=== PATIENT | female | born 1990 | race Caucasian/White ===

== ENCOUNTER → 2016-11-04 | Outpatient (CLI) | payer BC ==
[~2016-11-04] MED LIST: FOLI1TAB7 PO; PRENTAB26 PO; PROM12.57 PO
[2016-11-04 17:18] LABS: GTGD 50 Grams
== END | disposition home or self-care (01) ==
LOC: C.LAB1850 14:20
PROVIDERS: ATTEND Obstetrics & Gynecology
DX: O30.042 Twin pregnancy, dichorionic/diamniotic, second trimester (principal)

== ENCOUNTER → 2017-01-18 | Outpatient (CLI) | payer BC ==
[~2017-01-18] MED LIST changes: +AZO PO; +BCPILLS PO; +METO1TAB55 PO; +OXYC1TAB3 PO; +TAMS0.4C38 PO
[2017-01-18 15:48] LABS: HEMATOCRIT 34.2 % (37-47)
[2017-01-18 16:05] LABS: GTGD 50 Grams
[2017-01-18 16:38] LABS: URINE APPEARANCE CLEAR (CLEAR); URINE BILIRUBIN NEG (NEG); URINE COLOR DK YELLOW; URINE EPITHELIAL CELL AUTO >30 /lpf (0-5); URINE NITRITE NEG (NEG); URINE PH 6.5 (4.5-7.5); URINE SPECIFIC GRAVITY 1.023 (1.000-1.030); UROBILINOGEN NEG (NEG)
[2017-01-18 16:52] LABS: MANUAL MICROSCOPIC REQUIRED? NO; REVIEW REQ? NO
== END | disposition home or self-care (01) ==
LOC: C.LAB1850 14:13
PROVIDERS: ATTEND Obstetrics & Gynecology
DX: O30.043 Twin pregnancy, dichorionic/diamniotic, third trimester (principal)

== ENCOUNTER 2017-02-22 18:16 | Outpatient (CLI) | payer BC | END 2017-02-22 19:00 | disposition home or self-care (01) | LOC: C.OPB 18:16 → C.LD 18:16 → C.OPB 19:00 | PROVIDERS: ATTEND Obstetrics & Gynecology | DX: O30.043 Twin pregnancy, dichorionic/diamniotic, third trimester (principal); Z3A.32 32 weeks gestation of pregnancy ==

== ENCOUNTER 2017-03-02 15:50 | Outpatient (CLI) | payer BC | END 2017-03-02 16:50 | disposition home or self-care (01) | LOC: C.LD 15:50 → C.OPB 15:50 | PROVIDERS: ATTEND Obstetrics & Gynecology | DX: O30.043 Twin pregnancy, dichorionic/diamniotic, third trimester (principal); Z3A.33 33 weeks gestation of pregnancy ==

== ENCOUNTER 2017-03-09 16:16 | Outpatient (CLI) | payer BC ==
[2017-03-09] MEDS ORDERED: PRENTAB26 PO (16:52)
[2017-03-09] MEDS ORDERED: FOLI1TAB7 PO (16:53)
== END 2017-03-09 16:50 | disposition home or self-care (01) ==
LOC: C.LD 16:16 → C.OPB 16:16
PROVIDERS: ATTEND Obstetrics & Gynecology
DX: O30.043 Twin pregnancy, dichorionic/diamniotic, third trimester (principal); Z3A.39 39 weeks gestation of pregnancy

== ENCOUNTER → 2017-03-16 | Outpatient (CLI) | payer BC ==
[~2017-03-16] MED LIST changes: -PROM12.57 PO
== END ==
LOC: C.LABSPEC 11:00
PROVIDERS: ATTEND Obstetrics & Gynecology
DX: O09.93 Supervision of high risk pregnancy, unspecified, third trimester (principal); Z3A.00 Weeks of gestation of pregnancy not specified

== ENCOUNTER 2017-03-20 02:28 | Inpatient (IN) | payer BC ==
[~2017-03-20] VITALS: Ht 160 cm; Wt 83.4 kg
[~2017-03-20 02:28] MED LIST changes: -AZO PO; -BCPILLS PO; -METO1TAB55 PO; -OXYC1TAB3 PO; -TAMS0.4C38 PO
[2017-03-20 03:43] VITALS: Ht 160 cm; Wt 83.4 kg
[2017-03-20] MEDS ORDERED: LACTATED RINGER'S 1000ML 1,000 ML IV SCH (09:08)
[2017-03-20] MEDS ORDERED: LACTATED RINGER'S 1000ML 1,000 ML IV PRN (09:08)
[2017-03-20] MEDS ORDERED: PENICILLIN G POTASSIUM IV 6 MU in DEXTROSE 5% 250ML 250 ML IV ONE (09:30)
[2017-03-20] MEDS: LACTATED RINGER'S 1000ML 1,000 ML IV SCH ×2 (09:50→16:32)
[2017-03-20 10:12] LABS: MEAN CELL VOLUME 93.8 fL (80-100); MEAN CORPUSCULAR HEMOGLOBIN 31.3 pg (25-34); MEAN CORPUSCULAR HGB CONC 33.3 g/dl (32-36); PLATELET COUNT 226 K/uL (130-400); RED BLOOD COUNT 3.84 M/uL (4.2-5.4); WHITE BLOOD COUNT 12.47 K/uL (4.8-10.8)
[2017-03-20] MEDS: PENICILLIN G POTASSIUM IV 3 MU in DEXTROSE 5% 100ML 100 ML IV PRN ×3 (13:46→21:34)
[2017-03-20] MEDS ORDERED: EpHEDrine SULFATE INJ 50 MG/ML AMP ONE (14:45)
[2017-03-20] MEDS ORDERED: BUPIVACAINE 0.25% 30 ML VIAL ONE (14:45)
[2017-03-20] MEDS ORDERED: FENTANYL CITRATE INJ 50 MCG/1 ML 2 ML VIAL ONE (14:46)
[2017-03-20] MEDS ORDERED: FENTANYL 2MCG/ML ROPIV 1.25MG/ML 100ML BAG EPI ONE (14:46)
[2017-03-20] MEDS ORDERED: LACTATED RINGER'S 1000ML 500 ML IV PRN ×2 (15:57→19:08)
[2017-03-20] MEDS ORDERED: NALOXONE HCL INJ 1 MG in SODIUM CHLORIDE 0.9% 1000ML 1,000 ML IV PRN (15:57)
[2017-03-20] MEDS ORDERED: NALBUPHINE HCL INJ 10 MG/ML AMP IV PRN (16:00)
[2017-03-20] MEDS ORDERED: ONDANSETRON INJ 2 MG/ML 2 ML VIAL IV PRN (16:00)
[2017-03-20] MEDS ORDERED: DiphenhydrAMINE HCL 50 MG/ML VIAL IV PRN (16:00)
[2017-03-20] MEDS ORDERED: FENTANYL 2MCG/ML ROPIV 1.25MG/ML 100ML BAG EPI PRN (16:00)
[2017-03-20] MEDS ORDERED: NALOXONE HCL INJ 0.4 MG/1 ML VIAL/CARP IV PRN (16:00)
[2017-03-20] MEDS ORDERED: PROMETHAZINE HCL INJ 6.25 MG in SODIUM CHLORIDE 0.9% 50ML 50 ML IV PRN (16:00)
[2017-03-20] MEDS: EpHEDrine SULFATE INJ 50 MG/ML AMP IV PRN ×2 (16:27→16:29)
[2017-03-20] MEDS ORDERED: OXYTOCIN 30 UNITS/500ML NSS IV PRN (19:15)
[2017-03-21] VITALS (8 sets, daily range): BP systolic 100–115; BP diastolic 65–76; PULSE 86–102; TEMP 36.5–36.8; O2SAT 96–97
[2017-03-21] MEDS ORDERED: OXYTOCIN 30 UNITS/500ML NSS IV PRN (01:45)
[2017-03-21] MEDS ORDERED: LANOLIN OINT EXT PRN ×2 (01:45)
[2017-03-21] MEDS ORDERED: HYDROCORTISONE ACETATE 25 MG SUPP PR PRN (01:45)
[2017-03-21] MEDS ORDERED: OXYCODONE/ACETAMINOPHEN 5-325 TAB PO PRN (01:45)
[2017-03-21] MEDS ORDERED: SUPERCREAM 0.870 % 15GM JAR EXT PRN (01:45)
[2017-03-21] MEDS ORDERED: BENZOCAINE 20% AER SPR 82.5 GM CAN EXT PRN (01:45)
[2017-03-21] MEDS: IBUPROFEN 600 MG TAB PO PRN ×4 (02:51→19:32)
--- NOTE | 2017-03-21 03:15 | DELIVERY SUMMARY ---
DATE OF OPERATION: 03/21/2017 PRE-DELIVERY DIAGNOSES: 1. 36-week Anila twin gestation. 2. Advanced cervical dilation with cervical change and irregular contractions. POST-DELIVERY Diagnoses: Same. PROCEDURE: Spontaneous vaginal delivery of twins. FINDINGS: Baby A: viable female with Apgars 8 and 9 and weight was 5 pounds 12 ounces. Baby B viable male with Apgars 4 at 1 minute, 7 at 5 minutes and 8 at 10 minutes and weight for baby B was 5 pounds 14 ounces. First-degree perineal laceration. DESCRIPTION OF DELIVERY: The patient progressed to complete under epidural anesthesia. When she was complete and feeling the urge to push, she was taken to the operating room, where delivery was undertaken under double setup, in the event we needed to convert to section emergently. Patient began to push and baby A delivered from a cephalic presentation, the head delivered, nuchal cord x1 was noted and easily reduced. The anterior shoulder, followed by the posterior shoulder delivered followed by the body. The cord was doubly clamped and cut. Baby was handed off to the waiting pediatrics team. Next, under ultrasound guidance, baby B descended into the pelvis, feet first. An attempt was made to externally rotate baby to a cephalic presentation. However, even when the head descended into the pelvis, the feet were still present in addition to the head. Therefore, a decision was made to attempt to deliver the baby by breech extraction. The membranes of baby B were ruptured using an amnihook and foot was brought into the pelvis. The second leg was brought into the pelvis and the legs were delivered followed by the breech. Baby was wrapped in a wet blue towel and bilateral arms were swept midline and delivered and the head was flexed and delivered. The cord was doubly clamped and cut and baby was handed off to the waiting cane flume watchman. The cord segments were obtained for cord gases and these were sent to the lab. Placentas were sent for evaluation by pathology with one plastic clip on A and two plastic clips on B. Bilateral placentas were delivered with gentle traction and sent to pathology. The uterus and vagina were swept of all clots and debris. The uterus began to clamp down. The bladder was drained for approximately 200 mL of clear urine. This helped achieve better hemostasis. Pitocin was given. The cervix, uterus and vagina were inspected and a first-degree perineal laceration was noted. This was repaired with 3-0 Vicryl in standard fashion. Excellent hemostasis was observed. Mother and babies recovered in stable and good condition. I attest to the content of the Intraoperative Record and any orders documented therein. Any exceptions are noted below. MTDD
[2017-03-21] MEDS: DOCUSATE SODIUM 100 MG CAP PO SCH ×2 (08:49→19:32)
--- NOTE | 2017-03-21 09:20 | Anesthesia Procedure Note ---
Anesthesia Epidural Removal Nt Date & Time Mar 21, 2017 at 09:20 Vital Signs Pain Intensity: 4.0 Vital Signs Past 12 Hours Date Time Temp Pulse Resp B/P (MAP) Pulse Ox O2 Delivery O2 Flow Rate FiO2 03/21/17 07:43 36.6 86 18 105/69 (81) 96 Room Air 03/21/17 05:00 Room Air 03/21/17 05:00 36.6 101 18 109/69 (82) Room Air Notes Mental Status: alert / awake / arousable, participated in evaluation Nausea / Vomiting: adequately controlled Pain: adequately controlled Airway Patency, RR, SpO2: stable & adequate BP & HR: stable & adequate Hydration State: stable & adequate Neuraxial Anesthesia: was administered Anesthetic Complications: no major complications apparent, pt satisfied with anesthetic care Epidural: removed without complications, with tip intact
--- NOTE | 2017-03-22 07:42 | OB/GYN Progress Note ---
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 Subjective conversation w/ patient, physical exam Ambulation: ambulating normally Voiding: no voiding problems Passing Gas: Yes Diet Tolerance: Regular Diet Lochia: Small Feeding Type: Breast Feeding Pain: minimal, controlled with ibuprofen Review of Systems Constitutional: No fever, No chills Respiratory: No cough, No shortness of breath Cardiac: No chest pain, No edema, No palpitations Abdomen: No pain, No nausea, No vomiting Objective Vital Signs Date Time Temp Pulse Resp B/P (MAP) Pulse Ox O2 Delivery O2 Flow Rate FiO2 03/21/17 23:47 Room Air 03/21/17 23:45 36.8 91 18 115/76 (89) Room Air 03/21/17 20:00 36.8 102 18 106/68 (81) 96 Room Air 03/21/17 16:30 97 Room Air 03/21/17 16:30 36.7 96 18 107/66 (80) 97 Room Air 03/21/17 13:12 36.6 96 18 101/65 (77) 97 Room Air 03/21/17 11:10 36.5 100 20 100/66 (77) 97 Room Air 03/21/17 09:10 97 Room Air 03/21/17 07:43 36.6 86 18 105/69 (81) 96 Room Air Physical Exam General Appearance: WELL-APPEARING, NO APPARENT DISTRESS Respiratory/Chest: lungs clear, no accessory muscle use Cardiovascular: regular rate, rhythm, no murmur Abdomen: normal bowel sounds, non tender, soft Fundus: Firm, Non-Tender, Relation to Umbilicus (2 cm below) Extremities: non-tender, no calf tenderness Laboratory Results Last 24 Hours Test 03/22/17 07:17 Assessment and Plan Post- Day Number: 1 Continue Routine Care: Day 1 Vitals reviewed and stable Hgb pending today. 12.2 (2 days ago) A+, GBS+, Rubella immune Encourage ambulation, encourage and monitor lochia Patient doing well clinically CONTINUE ROUTINE POST CARE Resident Physician Supervision Note: I interviewed and examined the patient. Discussed with Dr. Guerin and agree with findings and plan as documented in the note. Any exceptions or clarifications are listed here: [None] Documented By: Og Stephens
[2017-03-22 07:48] LABS: HEMATOCRIT 28.4 % (37-47)
[2017-03-22] MEDS: DOCUSATE SODIUM 100 MG CAP PO SCH ×2 (08:07→20:08)
[2017-03-22] MEDS: IBUPROFEN 600 MG TAB PO PRN ×2 (08:08→22:14)
[2017-03-22 08:52] VITALS: BP 98/57; PULSE 62; TEMP 36.7; O2SAT 98
[2017-03-22 09:15] VITALS: BP 113/66; PULSE 93; TEMP 36.6; O2SAT 98
[2017-03-22 15:40] VITALS: BP 112/73; PULSE 86; TEMP 36.7
[2017-03-22] MEDS ORDERED: BISACODYL 5 MG TABEC PO SCH (20:00)
[2017-03-23] VITALS: BP 119/72; PULSE 93; TEMP 36.8; O2SAT 98
--- NOTE | 2017-03-23 07:30 | Progress Note ---
Subjective Mar 23, 2017. Subjective conversation w/ patient, physical exam, lab review Ambulation: ambulating normally Voiding: no voiding problems Passing Gas: Yes Diet Tolerance: Regular Diet Lochia: Small Feeding Type: Breast Feeding Pain: controlled Objective Vital Signs Date Time Temp Pulse Resp B/P (MAP) Pulse Ox O2 Delivery O2 Flow Rate FiO2 03/23/17 00:00 36.8 93 18 119/72 (88) 98 Room Air 03/23/17 00:00 Room Air 03/22/17 15:40 36.7 86 18 112/73 (86) Room Air 03/22/17 15:40 Room Air 03/22/17 09:15 36.6 93 18 113/66 (82) 98 Room Air Physical Exam General Appearance: WELL-APPEARING, WD/WN, NO APPARENT DISTRESS Abdomen: normal bowel sounds, non tender, soft Fundus: Firm, Non-Tender, Relation to Umbilicus Extremities: normal range of motion, non-tender, normal inspection, + pedal edema (trace) Assessment and Plan Post- Day#: 2 Continue Routine Care: Doing well. Plan d/c or rooming in if issues with the babies.
--- NOTE | 2017-03-23 07:32 | Discharge Instructions ---
Discharge Instructions Date of Service Mar 23, 2017. Admission Reason for Admission: Check Labor Discharge Discharge Diagnosis / Problem: s/p vaginal delivery of twins Discharge Goals Goal(s): Routine recovery after delivery Activity Recommendations Activity Limitations: per Instructions/Follow-up section . Instructions / Follow-Up Instructions / Follow-Up ACTIVITY RECOMMENDATIONS: * Gradual return to full activity over the next 2-3 weeks. * No lifting - nothing heavier than baby over the next 2-3 weeks. * Do not engage in vigorous exercise, sexual activity or sports until cleared by your physician. * Do not drive or operate any motorized equipment until cleared by your physician. * You may shower/bathe daily. MEDICATIONS: For discomfort or pain, you may use Acetaminophen (Tylenol), Ibuprofen (Advil), or Naproxen (Aleve) following the package directions. For constipation you may use Colace following the package directions. BREAST CARE: If you are not breast feeding: * Wear a supportive bra 24 hours a day for one to two weeks. * Avoid stimulating your breasts and nipples as much as possible during the first few weeks after delivery. * When taking a shower, have the warm water hit your back, not breasts. * When your breasts feel full, apply ice packs. Usually three to four times a day helps ease the discomfort. * Take a mild pain medication (Tylenol / Motrin) when you are uncomfortable. If breast feeding: * Use breast milk to lubricate nipples. Lansinoh cream may be used for sore nipples. You do not need to remove cream prior to breast feeding. If using a different brand of cream, check the label for directions regarding removal of cream prior to nursing. * Wear a supportive bra. * If having problems with breasts or breast feeding, call a outside solar sales consultant or your health care provider. EPISIOTOMY CARE: After delivery, if you have an episiotomy (stitches), the following steps will ease discomfort and aid healing. * For the first 24 hours after delivery, place ice packs next to your episiotomy to help reduce swelling. * After the first 24 hour-period, sitz baths, either portable or in the tub, are suggested. A shower with a shower arm sprayed over the episiotomy may be comforting. * Morena care should be done after each voiding and bowel movement. Squirt warm water from a plastic bottle over the perineum (region of the body between the anus and urinary opening) and pat dry. * Use Dermoplast to ease discomfort. Shake container. [place] directly over the episiotomy. Place a Tucks on a clean sanitary pad next to your episiotomy. SPECIAL CARE INSTRUCTIONS: When you are discharged from the hospital, it is important for you to follow the instructions listed below: * During the first week at home, you should be able to care for yourself and your baby. In addition, the usual light household activities are encouraged. * Limit your activities to the way you feel. Do not try to clean the house or move furniture. Be sensible. * If you actively engage in sports and have done so up until the time of your delivery, you may resume these activities as soon as you feel able. This may take up to one month or even longer. Use good judgment. * Continue to take your vitamins for at least six weeks after the of your baby. * Your diet need not be limited unless you were on a special diet before your delivery. Breast-feeding mothers need around 2500 calories per day and at least 64-80 ounces of fluid per day (8 to 10 glasses). * You should eat foods from the four major food groups. Crash diets or fad diets are to be avoided. Eating lean meats, fresh fruits and vegetables, low-fat dairy products, high fiber foods and a regular exercise program, will help you get back to your pre- weight without putting your health at risk. * Constipation is sometimes a problem after delivery. Take a mild laxative as needed. If breast feeding, Milk of Magnesia is acceptable to use. You may use a suppository or Fleets enema if no episiotomy. * A daily shower or tub bath is suggested. Be sure to thoroughly and gently dry the perineum. * A bloody vaginal discharge will usually continue until around four weeks post . A small amount of bleeding may continue for as long as six weeks. Vaginal discharge changes from the bright red bleeding after delivery to pink then brownish and finally yellowish-pink before becoming white and disappearing. * Bleeding may increase with activity. Your first period may come in 4-8 weeks. If you are breast feeding, your period may be delayed even longer. * Linda (sex) can begin whenever both you and your partner feel comfortable and do not have any form of genital infection. It is recommended that you wait at least six weeks for internal and external healing to occur. If you have questions, please talk to your health care practitioner. A condom should be used to prevent infection and . * Foreplay, gentle intercourse and lubrication is very important the first several times to prevent pain. A water-based lubricant such as K-Y jelly or Astroglide may be used. * If you have RH negative blood and your baby is RH positive, you will receive RHOGAM by injection prior to discharge. The nurse will give you a card to keep with you that has the date and place that you received RHOGAM after delivery. * During your care, you had a Rubella screen done to check for the presence of rubella antibodies in your blood. If your test was negative, you will receive a Rubella vaccine prior to discharge. This vaccine may cause a fever, soreness at the injection site and flu-like symptoms. If these symptoms persist, notify your health care practitioner. is not advised for one month after a Rubella vaccine. * Verbalizes understanding of car seat law as reviewed with patient nursing. * Car Seat hand-out given and reviewed with patient by nursing. * Shaken baby information reviewed with patient by nursing. Call you doctor if: * Heavy bleeding (saturating several pads an hour) or passing clots the size of your fist. * A fever >101 degrees F (38.3 degrees C) on two occasions four hours apart and /or chills. * Unusual pain in the pelvic or vaginal areas. * "Baby Blues" lasting longer than two weeks. If you have any questions or concerns, call your health care practitioner at . FOLLOW UP VISIT: * Please call the office at to schedule a 6 week examination. It is important you keep this appointment. It is important for you to make arrangements for either yearly or twice yearly check-ups thereafter. Current Hospital Diet Patient's current hospital diet: Regular OB Diet Discharge Diet Recommended Diet: Regular Diet Pending Studies Studies pending at discharge: no Medical Emergencies . Who to Call and When: Medical Emergencies: If at any time you feel your situation is an emergency, please call 911 immediately. . Non-Emergent Contact Non-Emergency issues call your: Manager Gift . . "Provider Documentation" section prepared by Kirsten Franklin. . VTE Core Measure Inpt VTE Proph given/why not?: Treatment not indicated
[2017-03-23 07:45] VITALS: BP 104/66; PULSE 84; TEMP 36.6; O2SAT 98
[2017-03-23] MEDS: DOCUSATE SODIUM 100 MG CAP PO SCH (07:57)
[2017-03-23] MEDS: IBUPROFEN 600 MG TAB PO PRN (07:58)
[2017-03-23 15:50] VITALS: BP_DIAS 66; PULSE 84; TEMP 36.6
== END 2017-03-23 16:05 | disposition home or self-care (01) | DRG 775 ==
LOC: C.OPB 02:28 → C.LD 02:28 → C.OPB 09:10 → C.LD 09:10 → C.OBG 03-21 05:17
PROVIDERS: ADMIT Obstetrics & Gynecology; ATTEND Obstetrics & Gynecology
PROC: 0HQ9XZZ Repair Perineum Skin, External Approach (ICD-10-PCS; principal; 2017-03-21)
PROC: 10E0XZZ Delivery of Products of Conception, External Approach (ICD-10-PCS; principal; 2017-03-21)
DX: O60.14X1 Preterm labor third trimester with preterm delivery third trimester, fetus 1 (principal); O60.14X2 Preterm labor third trimester with preterm delivery third trimester, fetus 2; O30.043 Twin pregnancy, dichorionic/diamniotic, third trimester; O32.8XX2 Maternal care for other malpresentation of fetus, fetus 2; O69.81X1 Labor and delivery complicated by cord around neck, without compression, fetus 1; O70.0 First degree perineal laceration during delivery; O99.824 Streptococcus B carrier state complicating childbirth; O28.8 Other abnormal findings on antenatal screening of mother; Z37.2 Twins, both liveborn; Z3A.36 36 weeks gestation of pregnancy

== ENCOUNTER → 2017-07-14 | Outpatient (CLI) | payer BC ==
[~2017-07-14] MED LIST changes: +AZO PO; +BCPILLS PO; +METO1TAB55 PO; +OXYC1TAB3 PO; +TAMS0.4C38 PO
[2017-07-14 17:49] LABS: URINE APPEARANCE CLEAR (CLEAR); URINE BILIRUBIN NEG (NEG); URINE COLOR YELLOW; URINE NITRITE NEG (NEG); URINE SPECIFIC GRAVITY 1.026 (1.000-1.030); UROBILINOGEN NEG (NEG)
[2017-07-14 17:51] LABS: MANUAL MICROSCOPIC REQUIRED? NO; REVIEW REQ? NO
== END | disposition home or self-care (01) ==
LOC: C.LAB1850 17:12
PROVIDERS: ATTEND Obstetrics & Gynecology
DX: R39.9 Unspecified symptoms and signs involving the genitourinary system (principal)

== ENCOUNTER 2017-07-17 13:41 | Emergency (ER) | payer BC ==
[~2017-07-17] VITALS: Ht 160 cm; Wt 63.8 kg
[~2017-07-17 13:41] MED LIST changes: -AZO PO; -BCPILLS PO; -METO1TAB55 PO; -OXYC1TAB3 PO; -TAMS0.4C38 PO
[2017-07-17 13:44] VITALS: TEMP 36.3; Ht 160 cm; Wt 63.8 kg
[2017-07-17] MEDS ORDERED: KETOROLAC TROMETHAMINE 30 MG/ML VIAL IV STA (14:59)
[2017-07-17] MEDS ORDERED: SODIUM CHLORIDE 0.9% 1000ML 1,000 ML IV STA (14:59)
[2017-07-17] MEDS ORDERED: ONDANSETRON INJ 2 MG/ML 2 ML VIAL IV STA (14:59)
--- NOTE | 2017-07-17 15:11 | EMERGENCY ROOM VISIT NOTE ---
History First contact with patient: 14:48 Chief Complaint: ABDOMINAL PAIN Stated Complaint: ABDOMEN AND BACK PAIN,VOMITING,BLOOD IN URINE Nursing Triage Summary: pt reports monday turned in urine sample sent here today for possible kidney stones . awoke with abd, back pain nauseated and vomiting History of Present Illness The patient is a 26 year old female who presents to the Emergency Room with complaints of left flank pain with nausea and vomiting that started today. Patient states she has been having symptoms of urinary frequency for the past week, she sent in a urinalysis to the lab 3 days ago and was told that there was blood in her urine, but no infection. She states that yesterday she noticed a little bit of left-sided back pain that has become much worse today. The pain radiates around to the front of her abdomen, she describes it as sharp and severe, similar to labor pains, 04/17. She states that she did take an over- the-counter Azo tablet for her urinary symptoms this morning, however she believes she vomited this up. She has not tried any other [id number] medications for pain. She does have a history of urinary tract infections, but denies any history of kidney stones. She is 3 months after giving to twins, she is currently breast-feeding, and states she has not gotten her period back yet. She denies any other symptoms of fever/chills, dizziness or passing out, chest pain, shortness of breath, diarrhea or constipation. Review of Systems A complete 10 point review of systems was reviewed with the patient with pertinent positives and negatives as per history of present illness. All else were negative. Past Medical/Surgical History Medical Problems: (1) Dichorionic diamniotic twin in third trimester (2) with 36 completed weeks gestation (3) Premature onset of labor (4) Twin gestation in third trimester Social History Smoking Status: Never Smoker Alcohol Use: none Drug Use: none Marital Status: Housing Status: lives with family Occupation Status: employed Current/Historical Medications Scheduled Control Pills ( Control Pills), 1 TAB PO DAILY Tamsulosin Hcl (Flomax), 0.4 MG PO DAILY [Azo], 2 TAB PO PRN Scheduled PRN Metoclopramide Hcl (Reglan), 1 TAB PO TID PRN for Documentation Oxycodone Ir (Roxicodone Ir), 1-2 TAB PO Q6H PRN for Severe Pain Physical Exam Vital Signs Date Time Temp Pulse Resp B/P (MAP) Pulse Ox O2 Delivery O2 Flow Rate FiO2 07/17/17 16:54 74 18 93/46 96 Room Air 07/17/17 15:12 62 18 99/65 98 Room Air 07/17/17 13:44 36.3 66 18 112/79 97 Room Air Physical Exam CONSTITUTIONAL: No acute distress. Well appearing and well nourished. Alert and oriented X 4 with normal affect. HEENT: Normocephalic, atraumatic. Pupils equal, round and reactive to light, EOMI. TMs normal. Pharynx normal. NECK: Supple, full active range of motion without discomfort. RESPIRATORY: Clear to auscultation bilaterally with no wheezing, crackles, rhonchi or stridor. Equal expansion bilaterally. CARDIOVASCULAR: Regular rate and rhythm with no murmurs, rubs or gallops. Normal peripheral perfusion. No edema. GASTROINTESTINAL: Moderate tenderness on the left flank/left lower quadrant. No rebound, no guarding. Positive CVA tenderness on the left. Abdomen is otherwise soft and nondistended. Bowel sounds present in all quadrants. MUSCULOSKELETAL: Full range of motion of all joints without discomfort. INTEGUMENTARY: No rash or other significant dermatologic conditions noted. NEUROLOGIC: Cranial nerves II-XII grossly intact. No focal neurologic deficits noted. Medical Decision & Procedures Laboratory Results 07/17/17 14:55 Red Blood Count 4.75, Mean Corpuscular Volume 89.5, Mean Corpuscular Hemoglobin 30.5, Mean Corpuscular Hemoglobin Concent 34.1, Mean Platelet Volume 10.1, Neutrophils (%) (Auto) 77.2, Lymphocytes (%) (Auto) 17.1, Monocytes (%) (Auto) 5.0, Eosinophils (%) (Auto) 0.3, Basophils (%) (Auto) 0.2, Neutrophils # (Auto) 7.65, Lymphocytes # (Auto) 1.70, Monocytes # (Auto) 0.50, Eosinophils # (Auto) 0.03, Basophils # (Auto) 0.02 07/17/17 14:55 Test 07/17/17 14:55 White Blood Count 9.92 K/uL (4.8-10.8) Red Blood Count 4.75 M/uL (4.2-5.4) Hemoglobin 14.5 g/dL (12.0-16.0) Hematocrit 42.5 % (37-47) Mean Corpuscular Volume 89.5 fL (80-100) Mean Corpuscular Hemoglobin 30.5 pg (25-34) Mean Corpuscular Hemoglobin Concent 34.1 g/dl (32-36) Platelet Count 266 K/uL (130-400) Mean Platelet Volume 10.1 fL (7.4-10.4) Neutrophils (%) (Auto) 77.2 % Lymphocytes (%) (Auto) 17.1 % Monocytes (%) (Auto) 5.0 % Eosinophils (%) (Auto) 0.3 % Basophils (%) (Auto) 0.2 % Neutrophils # (Auto) 7.65 K/uL (1.4-6.5) Lymphocytes # (Auto) 1.70 K/uL (1.2-3.4) Monocytes # (Auto) 0.50 K/uL (0.11-0.59) Eosinophils # (Auto) 0.03 K/uL (0-0.5) Basophils # (Auto) 0.02 K/uL (0-0.2) RDW Standard Deviation 43.6 fL (36.4-46.3) RDW Coefficient of Variation 13.3 % (11.5-14.5) Immature Granulocyte % (Auto) 0.2 % Immature Granulocyte # (Auto) 0.02 K/uL (0.00-0.02) Urine Color ORANGE Urine Appearance SLIGHTLY CLOUDY (CLEAR) Urine pH (4.5-7.5) Urine Specific [place] 1.029 (1.000-1.030) Urine Protein NEG (NEG) Urine Glucose (UA) (NEG) Urine Ketones (NEG) Urine Occult Blood (NEG) Urine Nitrite (NEG) Urine Bilirubin (NEG) Urine Urobilinogen (NEG) Urine Leukocyte Esterase (NEG) Urine WBC (Auto) 10-30 /hpf (0-5) Urine RBC (Auto) 10-30 /hpf (0-4) Urine Hyaline Casts (Auto) 1-5 /lpf (0-5) Urine Epithelial Cells (Auto) >30 /lpf (0-5) Urine Bacteria (Auto) 1+ (NEG) Urine Mucus PRESENT (NONE PRSENT) Urine Test NEG (NEG) Anion Gap 7.0 mmol/L (3-11) Est Creatinine Clear Calc Drug Dose 94.3 ml/min Estimated GFR () 115.3 Estimated GFR (Non- 99.5 BUN/Creatinine Ratio 25.5 (10-20) Calcium Level 9.3 mg/dl (8.5-10.1) Medications Administered Medications (Trade) Dose Ordered Sig/Heidi Route Start Time Stop Time Status Last Admin Dose Admin Sodium Chloride 1,000 ml @ 999 mls/hr Q1H1M STAT IV 07/17/17 14:59 07/17/17 15:59 DC 07/17/17 14:59 999 MLS/HR Ondansetron HCl (Zofran Inj) 4 mg NOW STAT IV 07/17/17 14:59 07/17/17 15:02 DC 07/17/17 15:10 4 MG Ketorolac Tromethamine (Toradol Inj) 15 mg NOW STAT IV 07/17/17 14:59 07/17/17 15:02 DC 07/17/17 15:10 15 MG Tamsulosin HCl (Flomax Cap) 0.4 mg NOW ONCE PO 07/17/17 16:30 07/17/17 16:31 DC 07/17/17 16:53 0.4 MG Medical Decision CC: Patient presenting with complaint of left flank pain, nausea/vomiting, hematuria Interpretation of Labs: No leukocytosis, no anemia, no significant electrolyte abnormality, normal renal function. UA was unable to be fully interpreted due to large amount of blood, culture sent for confirmation. Urine negative. Differential Diagnosis: Includes, but not limited to kidney stone, renal colic, UTI, pyelonephritis, ovarian torsion, ectopic , gastroenteritis, diverticulitis, among others. Medication Reconciliation: I attest that I have personally reviewed the patient' s current medication list. Vital signs review: I reviewed the patient's vital signs and interpret them as follows: T: Afebrile; BP: Normotensive; HR: Within normal limits; RR: Within normal limits; Pulse Ox: Within normal limits on room air. Summary: Patient was evaluated at bedside, history of physical exam performed. Patient is alert and in no acute distress, resting calmly in the stretcher. She does have left-sided CVA tenderness with left flank tenderness on exam. She reports that her pain is currently improved, rates as 3/10. She states that she had gone into the bathroom to void, after which her pain seemed to improve. Orders were placed at bedside for labs, UA and urine , IV fluids for hydration, IV Zofran for nausea, IV Toradol for pain, CT abdomen/pelvis without contrast to evaluate for ureteral stone. Patient discussed with Dr. Gan, who agrees with my assessment and plan. Labs reviewed as above, no significant abnormalities. Gross hematuria. CT imaging confirms a left distal 6 mm ureteral stone, with mild to moderate hydronephrosis. Patient was updated on all results and plan for management/discharge. She was provided with prescriptions for symptomatic management, urine strainer, and referral information for the urologist. Patient reassessed multiple times throughout ED stay, she reports that her pain has been much improved after Toradol, her nausea is also improved after Zofran and she is tolerating some PO. Patient was comfortable with plan for discharge home. I did discuss all of her prescriptions with her in relation to her breast feeding, and gave her directions regarding pump and dump. Patient was also given return precautions should her symptoms worsen, she verbalized understanding. Patient was discharged home in stable condition and ambulatory. Impression Primary Impression: Calculus of distal left ureter Departure Information Dispostion Home / Self-Care Condition GOOD Prescriptions Metoclopramide Hcl (REGLAN) 10 Mg Tab 1 TAB PO TID Y for Documentation, #10 TAB As needed for nausea/vomiting Prov: Ashanti Chowdary CRNP 07/17/17 Tamsulosin Hcl (FLOMAX) 0.4 Mg Cap 0.4 MG PO DAILY for 7 Days, #7 CAP Prov: Ashanti Chowdary CRNP 07/17/17 Oxycodone Ir (Roxicodone Ir) 5 Mg Tab 1-2 TAB PO Q6H Y for Severe Pain, #20 TAB Prov: Ashanti Chowdary CRNP 07/17/17 Referrals Nick Levi M.D. (PCP) Solomon Lester M.D. Patient Instructions ED Stone Renal W Colic, ED Strainer Urine, [facility] Additional Instructions You have been treated in the Emergency Department today for a Kidney Stone ( Nephrolithiasis). For mild to moderate pain, you should take ibuprofen 600 mg every 6-8 hours as needed. You may also take Tylenol (acetaminophen) 1000 mg every 8 hours as needed. These are both safe during breast-feeding. You have been prescribed oxycodone to be used as needed for severe pain. This is a narcotic medication. You cannot drive or consume alcohol while on this medicine. This medicine should only be used for pain that cannot be controlled with [id number] pain medicines. You should pump and dump after taking this medicine to avoid passing it to your infants. You have been prescribed Reglan to be used for any nausea or vomiting. Take as prescribed. This is safe during breast-feeding. You have been prescribed Flomax 0.4 mg to be taken ONCE daily. This medicine has been prescribed as it can help relax the smooth muscles of the urinary tract increasing transit time of the kidney stone. You should pump and dump after taking this medicine. Drink plenty of fluids to stay hydrated. You have been provided a strainer and specimen collection cup. You should strain your urine to collect any passed stones. Your stones can be placed into the specimen cup and taken to your Urologist for further evaluation. You have been provided the contact information for the on-call Urologist. You should contact the Urologist's office tomorrow to establish a follow-up appointment in the next 1-2 weeks. Return to the Emergency Department if your symptoms persist despite the treatment plan outlined above or if you develop the following symptoms: Severe pain that does not respond to medications, uncontrolled nausea/vomiting, fever/ chills, if you are unable to urinate, or for large amounts of blood in your urine.
[2017-07-17 15:30] LABS: BASO % 0.2 %; BASO ABS # 0.02 K/uL (0-0.2); COMPLETE YES; EOS % 0.3 %; HEMATOCRIT 42.5 % (37-47); IG% 0.2 %; LYMPH % 17.1 %; MANUAL MICROSCOPIC REQUIRED? NO; MEAN CELL VOLUME 89.5 fL (80-100); MEAN CORPUSCULAR HEMOGLOBIN 30.5 pg (25-34); MEAN CORPUSCULAR HGB CONC 34.1 g/dl (32-36); MEAN PLATELET VOLUME 10.1 fL (7.4-10.4); NEUT % 77.2 %; PLATELET COUNT 266 K/uL (130-400); RED BLOOD COUNT 4.75 M/uL (4.2-5.4); REVIEW REQ? YES; SULFASALICYLIC ACID NEG (NEG); URINE APPEARANCE SLIGHTLY CLOUDY (CLEAR); URINE COLOR ORANGE; URINE SPECIFIC GRAVITY 1.029 (1.000-1.030); WHITE BLOOD COUNT 9.92 K/uL (4.8-10.8)
[2017-07-17 15:35] LABS: URINE MUCUS PRESENT (NONE PRSENT)
[2017-07-17 15:36] LABS: URINE EPITHELIAL CELL AUTO >30 /lpf (0-5)
[2017-07-17 15:37] LABS: BUN/CREATININE RATIO 25.5 (10-20); CALCIUM 9.3 mg/dl (8.5-10.1); CREATININE 0.82 mg/dl (0.60-1.20); POTASSIUM 3.9 mmol/L (3.5-5.1)
[2017-07-17] MEDS ORDERED: BCPILLS PO (15:50)
[2017-07-17] MEDS ORDERED: AZO PO (15:50)
--- NOTE | 2017-07-17 15:51 | DIAGNOSTIC IMAGING REPORT ---
ABD/PELVIS WITHOUT FOR STONE CLINICAL HISTORY: 26 years-old Female presenting with Flank pain, eval for stone. TECHNIQUE: Multidetector CT of the abdomen and pelvis was performed without the use of intravenous contrast. IV contrast: None. A dose lowering technique was used consistent with the principles of ALARA (as low as reasonably achievable). COMPARISON: None. CT DOSE (mGy.cm): The estimated cumulative dose is 536.12 mGy.cm. FINDINGS: Ad Setter topogram: Unremarkable. Lung bases: Lung bases clear. Normal heart size. No pericardial or pleural effusion. Liver: Normal morphology. Normal density. Biliary: No gross biliary ductal dilatation allowing for noncontrast technique. Normal gallbladder. Pancreas: Normal noncontrast appearance. Spleen: Normal noncontrast appearance. Adrenal glands: Normal noncontrast appearance. Kidneys and ureters: 2 mm nonobstructing calculus at the lower pole of the left kidney. Mild left hydroureteronephrosis. Obstructing 6 mm calculus impacted in the distal left ureter immediately proximal to the vesicoureteral junction. Bladder: Normal. No bladder calculi. Pelvic organs: Normal noncontrast appearance. Bowel: Appendix contains an appendicolith at its tip. Appendix otherwise normal. No bowel obstruction. Peritoneal cavity: No free fluid or intraperitoneal gas. Lymph nodes: No gross lymphadenopathy allowing for noncontrast technique. Vasculature: Normal noncontrast appearance. Abdominal wall: Small fat-containing of [place] hernia. Musculoskeletal: Normal. IMPRESSION: 1. Obstructing 6 mm calculus in the distal left ureter with resultant mild left hydroureteronephrosis. Additional nonobstructing punctate calculus at the lower pole the left kidney. Electronically signed by: Luis Steele M.D. 07/17/2017 3:49 PM Dictated Date/Time: 07/17/2017 3:45 PM
[2017-07-17] MEDS ORDERED: TAMSULOSIN HCL 0.4 MG CAP PO ONE (16:30)
[2017-07-17] MEDS ORDERED: OXYC1TAB3 PO (16:34)
[2017-07-17] MEDS ORDERED: TAMS0.4C38 PO (16:34)
[2017-07-17] MEDS ORDERED: METO1TAB55 PO (16:34)
[2017-07-17 16:54] VITALS: BP 93/46; PULSE 74; O2SAT 96
== END 2017-07-17 17:06 | disposition home or self-care (01) ==
LOC: C.EDB 13:43 → C.EDC 17:06
DX: N20.1 Calculus of ureter (principal); R10.9 Unspecified abdominal pain; R31.9 Hematuria, unspecified; R11.10 Vomiting, unspecified

== ENCOUNTER → 2017-09-07 | Outpatient (CLI) | payer BC ==
[~2017-09-07] MED LIST changes: +AZO PO; +BCPILLS PO; -FOLI1TAB7 PO; +METO1TAB55 PO; +OXYC1TAB3 PO; -PRENTAB26 PO
[2017-09-07 17:27] LABS: MANUAL MICROSCOPIC REQUIRED? NO; REVIEW REQ? NO; URINE APPEARANCE CLEAR (CLEAR); URINE BILIRUBIN NEG (NEG); URINE COLOR YELLOW; URINE EPITHELIAL CELL AUTO >30 /lpf (0-5); URINE NITRITE NEG (NEG); UROBILINOGEN NEG (NEG)
== END | disposition home or self-care (01) ==
LOC: C.LAB1850 16:31
PROVIDERS: ATTEND Obstetrics & Gynecology
DX: R39.9 Unspecified symptoms and signs involving the genitourinary system (principal)

== ENCOUNTER → 2017-09-26 | Outpatient (CLI) | payer BC ==
[2017-09-26 14:11] LABS: PREG INTERNAL NEGATIVE QC NEG CLEAR BACKGROUND; PREG INTERNAL POSITIVE QC POS CONTROL LINE
[2017-09-29 03:07] LABS: CHLAMYDIA TRACH RNA*** NOT DETECTED (NOT DETECTED); GC (NEIS GONORRHOEAE)RNA** NOT DETECTED (NOT DETECTED)
== END | disposition home or self-care (01) ==
LOC: C.LAB 13:47
PROVIDERS: ATTEND Physician Assistant
DX: Z30.430 Encounter for insertion of intrauterine contraceptive device (principal); Z30.9 Encounter for contraceptive management, unspecified

== ENCOUNTER → 2017-12-21 | Outpatient (CLI) | payer BC | END | disposition home or self-care (01) | LOC: C.LABSPEC 15:40 | PROVIDERS: ATTEND Physician Assistant | DX: R39.9 Unspecified symptoms and signs involving the genitourinary system (principal); N89.8 Other specified noninflammatory disorders of vagina ==